=== PATIENT | male | born 1955 | race African-American/Black ===

== ENCOUNTER 2017-11-20 20:37 | Emergency (ER) | payer MEDICAID, OTHER ==
[~2017-11-20] VITALS: Ht 182.9 cm; Wt 80.3 kg
[~2017-11-20 20:37] MED LIST: IBUPROFEN600 MG PO
[2017-11-20] MEDS ORDERED: ATROVENT HFA12.9 GM IH (20:50)
[2017-11-20 21:00] VITALS: BP 148/82
--- NOTE | 2017-11-20 21:06 | Emergency Room Report ---
History of Present Illness General Chief Complaint: Dyspnea/Respdistress Source: Patient Present Illness HPI This is a 61-year-old male with a history of TB in the past that was treated. He also has a history of COPD continued to smoke without a lower rate. He presents with chief complaint of shortness of breath. Onset this morning and got better. And recur tonight. He used his inhaler but is not helping. 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 He is only taking Atrovent. He denies any fever chills. No nausea no vomiting. Cough is slightly productive sputum. Worse with exertion. Better with rest. No chest pain. No nausea no vomiting. No fever chills. Allergies: Coded Allergies: No Known Allergies (Unverified , 03/24/12) Patient History Past Medical History: see triage record, old chart reviewed, COPD Past Surgical History: other Pertinent Family History: none Social History: Reports: smoking Immunizations: other Reviewed Nursing Documentation: PMH: Agreed; PSxH: Agreed Nursing Documentation-PMH Hx COPD: Yes Review of Systems Eye: Denies: eye pain, blurred vision ENT: Denies: ear pain, nose congestion, throat swelling Respiratory: Reports: cough, shortness of breath Cardiovascular: Denies: chest pain, palpitations Gastrointestinal: Denies: abdominal pain, diarrhea, nausea, vomiting Musculoskeletal: Denies: back pain, joint pain Skin: Denies: rash Neurological: Denies: headache, numbness Endocrine: Denies: increased thirst, increased urine Hematologic/Lymphatic: Denies: easy bruising All Other Systems: negative except mentioned in HPI Physical Exam Vital Signs Date Time Temp Pulse Resp B/P (MAP) Pulse Ox O2 Delivery O2 Flow Rate FiO2 11/20/17 20:46 98.2 70 20 152/85 95 Room Air 98.2 vitals with htn Sp02 EP Interpretation: reviewed, normal General Appearance: well appearing, no apparent distress, alert Head: normocephalic, atraumatic Eyes: bilateral eye PERRL, bilateral eye EOMI ENT: hearing grossly normal, normal pharynx Neck: full range of motion, supple, no meningismus Respiratory: chest non-tender, decreased breath sounds, accessory muscle use, wheezing - Slight wheezing expiratory Cardiovascular #1: regular rate, rhythm, no murmur Gastrointestinal: normal bowel sounds, non tender, no mass, no organomegaly, no bruit, non-distended Musculoskeletal: back normal, gait/station normal, normal range of motion Psychiatric: mood/affect normal Skin: warm/dry Medical Decision Making Diagnostic Impression: Primary Impression: COPD with exacerbation ER Course Patient presents with shortness of breath, cough and wheezing. Resolved after breathing treatment. This is consistent with COPD exacerbation. No evidence of ACS, PE, dissection to name a few. He is only taking Atrovent which is arrival inhaler for him. We'll put him on albuterol. 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 This is a same as 2013. No evidence of active TB. Chest X-Ray Diagnostic Results Chest X-Ray Diagnostic Results : Chest X-Ray Ordered: Yes # of Views/Limited/Complete: 1 View Indication: Shortness of Breath EP Interpretation: Yes Interpretation: no effusion, no pneumothorax, other - left apical ghon complex Last Vital Signs Date Time Temp Pulse Resp B/P (MAP) Pulse Ox O2 Delivery O2 Flow Rate FiO2 11/20/17 20:46 98.2 70 20 152/85 95 Room Air 98.2 Status: improved Disposition: HOME, SELF-CARE Condition: Improved Scripts Azithromycin* (ZITHROMAX*) 250 Mg Tablet 250 MG ORAL DAILY, #6 TAB 0 Refills Take two tables once daily for 1 day, then one tablet once daily for 4 days. Prov: FAITH RUBIO M.D. 11/20/17 Prednisone* (PREDNISONE*) 20 Mg Tablet 60 MG ORAL DAILY, #12 TAB Prov: FAITH RUBIO M.D. 11/20/17 Albuterol Sulfate* (ALBUTEROL SULFATE MDI*) 8.5 Gm Hfa.aer.ad 2 PUFF INH Q4H PRN for cough/wheezing, #1 EA 0 Refills Prov: FAITH RUBIO M.D. 11/20/17 Patient Instructions: Chronic Obstructive Pulmonary Disease Exacerbation Additional Instructions: Follow-up with your doctor in 7 days. Return if symptom worsen. Stop smoking. FAITH RUBIO M.D. Nov 20, 2017 21:06
[2017-11-20] MEDS ORDERED: Albuterol/Ipratropium 3ml neb HHN ONE (21:15)
[2017-11-20] MEDS ORDERED: PREDNISONE20 MG ORAL (21:48)
[2017-11-20] MEDS ORDERED: ALBUTEROL SULF8.5 GM INH (21:48)
[2017-11-20] MEDS ORDERED: ZITHROMAX250 MG ORAL (21:48)
[2017-11-20 22:00] VITALS: BP 148/82
--- NOTE | 2017-11-21 13:08 | Diagnostic Imaging Report ---
Indication: Shortness of breath Technique: One view of the chest Comparison: 01/18/2013 Findings: 7.5 x 6 cm left apical lung mass is again demonstrated. This demonstrates a rim of lucency between the outer wall and the central component. Appearance is unchanged from the prior exam. A calcified granuloma is seen in the left midlung, and another in the right upper lobe. No new infiltrates. Pleural spaces are clear. The heart size is normal. Impression: Stable (over 5 years), presumably benign, left apical lung mass, appearance suggestive of cavitary lesion with central mycetoma, among other possibilities. Correlate with clinical history and any previous workup may been performed Evidence old granulomatous disease No definite acute process
== END 2017-11-20 22:00 | disposition home or self-care (01) ==
LOC: EMR 21:50
DX: J44.1 Chronic obstructive pulmonary disease with (acute) exacerbation (principal)
CPT/HCPCS: 71045; 94640; 99284; J7512; J7620

== ENCOUNTER 2019-09-22 15:59 | Emergency (ER) | payer MEDICAID, OTHER ==
[~2019-09-22] VITALS: Ht 182.9 cm; Wt 80.3 kg
[2019-09-22 15:56] VITALS: BP 122/81
[~2019-09-22 15:59] MED LIST changes: +ALBUTEROL SULF8.5 GM INH; +ATROVENT HFA12.9 GM IH; +PREDNISONE20 MG ORAL; +ZITHROMAX250 MG ORAL
[2019-09-22] MEDS ORDERED: Albuterol/Ipratropium 3ml neb HHN ONE (16:15)
--- NOTE | 2019-09-22 16:21 | Emergency Room Report ---
History of Present Illness General Chief Complaint: Upper Respiratory Illness Source: Patient Present Illness HPI Patient is a 63-year-old male past medical history of COPD who presents to the ER stating that he needs a breathing treatment. Patient states that he feels like his COPD is acting up. He complains of occasional cough with clear mucus. He denies any fever or chills. He denies any chest pain. He complains of mild shortness of breath that he says is consistent with his COPD. He denies any recent travel or sick contacts. He denies any lower extremity pain or edema. Patient states that last time he presented with the same complaint was given a 20-minute nebulizer treatment that made him feel better. He states that he has 3 different inhalers at home. Allergies: Coded Allergies: No Known Allergies (Unverified , 03/24/12) COVID-19 Screening Contact w/high risk pt: No Recent Travel to affected area: No Experienced COVID-19 symptoms?: Yes COVID-19 symptoms experienced: Shortness of Breath, Cough Patient History Reviewed Nursing Documentation: PMH: Agreed; PSxH: Agreed Nursing Documentation-PMH Past Medical History: No History, Except For Hx COPD: Yes - TB, PNA Review of Systems All Other Systems: negative except mentioned in HPI Physical Exam Vital Signs Date Time Temp Pulse Resp B/P (MAP) Pulse Ox O2 Delivery O2 Flow Rate FiO2 09/22/19 15:50 98.2 87 17 122/81 (95) 96 Room Air Sp02 EP Interpretation: reviewed, normal General Appearance: no apparent distress, alert, GCS 15, non-toxic Head: normocephalic, atraumatic Eyes: bilateral eye normal inspection, bilateral eye PERRL ENT: hearing grossly normal, normal pharynx, no angioedema, normal voice Neck: full range of motion, supple/symm/no masses Respiratory: chest non-tender, speaking full sentences, other - scattered wheezing Cardiovascular #1: regular rate, rhythm, no edema Gastrointestinal: normal bowel sounds, non tender, soft, non-distended, no guarding, no rebound Rectal: deferred Genitourinary: normal inspection, no CVA tenderness Musculoskeletal: back normal, normal range of motion, gait/station normal, non- tender Neurologic: alert, motor strength/tone normal, oriented x3, sensory intact, responsive, speech normal Psychiatric: judgement/insight normal, memory normal, mood/affect normal, no suicidal/homicidal ideation Skin: no rash Lymphatic: no adenopathy Medical Decision Making Diagnostic Impression: Primary Impression: COPD (chronic obstructive pulmonary disease) ER Course Patient presents for mild COPD exacerbation. Patient given 1 DuoNeb treatment. Patient's x-ray demonstrates no acute cardiopulmonary pathology. Patient has old large left upper lung mass which appears unchanged. Patient states that he feels improved after his nebulizer treatment. He is also asking for refill on his albuterol because it is empty. After discussing risks and benefits of further diagnostics, treatment plans, as well as indications for and risks of admission, the patient is agreeable to being discharged home. I have explained that their evaluation and treatment in the emergency department today is an important step towards them achieving better health but that their evaluation today is not intended to replace further evaluation and treatment by a physician in their local clinic. I have explained that while the current findings suggest no immediate life threatening emergency they will require further evaluation and treatment by a physician of their choice in their area. They understand that it will be necessary for them to review the final reports of their ED visit with their clinic physician. We have reviewed indications for return to the Emergency Department. I have explained that additional time may need to pass and/or additional testing as an outpatient may be necessary before a definitive diagnosis can be made. They tell me they are willing to follow up as instructed within the timeframe I recommend. They appear to understand what we discussed. Additionally they understand that if they are unable to be seen by an outpatient physician they are welcome, and in fact should, return to the Emergency Department for a repeat evaluation. The patient is stable at time of discharge. EKG Diagnostic Results EKG Time: 16:27 EP Interpretation: MD Misael Rate: normal - 73 Rhythm: NSR ST Segments: no acute changes ASA given to the pt in ED: No Chest X-Ray Diagnostic Results Chest X-Ray Diagnostic Results : Chest X-Ray Ordered: Yes # of Views/Limited/Complete: 1 View Indication: Other - cough Interpretation: no effusion, no pneumothorax, no acute cardiopulmonary disease, other - old L upper lung mass Impression: No acute disease Last Vital Signs Date Time Temp Pulse Resp B/P (MAP) Pulse Ox O2 Delivery O2 Flow Rate FiO2 09/22/19 15:56 98.2 87 17 122/81 96 Room Air Disposition: HOME, SELF-CARE Condition: Stable - improved Scripts Albuterol Sulfate* (ALBUTEROL SULFATE HHN*) 2.5 Mg/3 Ml Vial.neb 2.5 MG HHN Q4H PRN for Shortness of Breath, #25 VIAL Prov: Nano Douglas M.D. 09/22/19 Additional Instructions: The patient was provided with discharge instructions, notified to follow-up with a primary care doctor and or specialist in the next 24-48 hours, and to return to the ED if they have worsening of their symptoms. Please note that this report is being documented using [employer] technology. This can lead to erroneous entry secondary to incorrect interpretation by the dictating instrument. Nano Douglas M.D. Sep 22, 2019 16:21
[2019-09-22] MEDS ORDERED: ALBUTEROL2.5 MG/3 M HHN (16:49)
[2019-09-22 16:54] VITALS: BP 128/76
--- NOTE | 2019-09-22 17:07 | Diagnostic Imaging Report ---
EXAM: XR Chest, 1 View CLINICAL HISTORY: COUGH TECHNIQUE: Frontal view of the chest. COMPARISON: 01/18/2013 FINDINGS: Lungs: Scarring within the right upper lobe. Nodular opacity over the left midlung is unchanged. No new airspace abnormality. Redemonstrated 7 cm mass within the left upper lobe. Pleural space: No pleural effusion. No pneumothorax. Heart: Unremarkable. No cardiomegaly. IMPRESSION: 1. No acute cardiopulmonary abnormality. 2. Redemonstrated 7 cm mass within the left upper lobe, unchanged from 2013.
== END 2019-09-22 16:55 | disposition home or self-care (01) ==
LOC: EDBD 15:59 → EMR 16:20
DX: J44.1 Chronic obstructive pulmonary disease with (acute) exacerbation (principal); R06.02 Shortness of breath; Z86.11 Personal history of tuberculosis
CPT/HCPCS: 71045; Z7502; 99284; J7620